=== PATIENT | female | born 1960 | race American Indian/Alaskan Native ===

== ENCOUNTER 2016-11-11 22:47 | Emergency (ER) | payer OTHER, BC ==
[2016-11-12] MEDS ORDERED: CATAPRES ONE (00:38)
[2016-11-12] MEDS ORDERED: CATAPRES PO ONE (00:40)
[2016-11-12] MEDS ORDERED: NORCO 7.5/325 PO ONE (05:22)
[2016-11-12] MEDS ORDERED: FLEXERIL PO ONE (05:22)
[2016-11-12 05:30] VITALS: BP 123/79
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
== END 2016-11-12 06:58 | disposition home or self-care (01) ==
LOC: ED 22:47
DX: Z04.1 Encounter for examination and observation following transport accident (principal); V89.2XXA Person injured in unspecified motor-vehicle accident, traffic, initial encounter; Y92.488 Other paved roadways as the place of occurrence of the external cause; Y93.89 Activity, other specified; Y99.8 Other external cause status
CPT/HCPCS: 70450; 72125